=== PATIENT | male | born 1950 | race Caucasian/White ===

== ENCOUNTER 2025-07-26 08:46 | Emergency (ER) | payer MEDICARE, SELFPAY ==
[2025-07-26 08:49] VITALS: BP 130/85
[2025-07-26 11:13] VITALS: BP 105/64
[2025-07-26 11:14] VITALS: BMI 27.4
--- NOTE | 2025-07-26 12:51 | ED.GENMED ---
History of Present Illness
General
Chief Complaint: DVT/Possible Blood Clot
Time Seen by Provider: 07/26/25 11:09
History of Present Illness
History of Present Illness:
75-year-old male presents to the emergency department for evaluation of right calf discomfort. 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 He does take Plavix and aspirin. Denies trauma to the area. No fevers or chills
Review of Systems
Review of Systems
Allergies reviewed?: Yes
All Other Systems: ROS reviewed and negative except as documented in HPI and ROS
Phy Exam
Physical Exam
Physical Exam:
GEN: Well appearing, NAD, WDWN
HEENT: Oral mucosa moist, no scleral icterus
Cardiac: Regular rate
Lung: No respiratory distress, no tachypnea
MSK: Thready venous cords with tenderness to the posterior right calf, no erythema, tenderness to palpation
Skin: Good color, no pallor or jaundice, no rashes
Neuro: AO x3, moves all extremities freely
Psych: Calm, cooperative
Course
Orders/Labs/Results
Orders:
Orders
07/26/25 08:57
US Legs, Right [US Periph Venous LOWER Ext RT] Urgent
Comment:
Reason For Exam: pain swelling
Vital Signs
Initial and Last Documented VS:
Initial Vital Signs
Temp Pulse Resp BP Pulse Ox
98.8 F 72 16 130/85 96
07/26/25 08:49 07/26/25 08:49 07/26/25 08:49 07/26/25 08:49 07/26/25 08:49
Last Documented Vital Signs
Temp Pulse Resp BP Pulse Ox
98.8 F 72 16 105/64 97
07/26/25 08:49 07/26/25 08:49 07/26/25 08:49 07/26/25 11:13 07/26/25 12:51
MDM/Problems Addressed
MDM/Problems Addressed:
Exam and ultrasound consistent with acute superficial thrombophlebitis. Patient is advised he may increase aspirin for 5-day period to full dose however should not exceed 5 days due to bleeding risk. Recommend warm compresses and primary care
follow-up
*Pulse Oximetry
SaO2: 97
Oxygen Mode of Delivery: Room air
Patient hypoxic: no
*Critical Care Note
Total Time (30-74mins, 75-104mins- exclusive of procedures): Not Applicable
ED Attending Note
-
Portions of this chart may have been created with voice recognition software.� Occasional wrong word or��sound alike� substitutions may have occurred due to the inherent limitations of voice recognition software.
Discharge Plan
Departure
Patient Disposition: Home (Routine Discharge)
Date of Disposition: 07/26/25
Time of Disposition: 12:51
Patient with high blood pressure during this ER visit?: No
Discharge Problem:
Superficial thrombophlebitis
Instructions: Superficial vein phlebitis and thrombosis
Referrals:
UNKNOWN - PT DOES,NOT KNOW [Family Provider]
Interventions
Interventions:
*General Assessment Last Done: 07/26/25 11:15
*Neglect/Abuse Screening Last Done: 07/26/25 08:49
*ED COVID-19 Vaccine History Last Done: 07/26/25 11:15
*ED Influenza Vaccine History Last Done: 07/26/25 11:15
[facility] Fall Risk Assessment Tool Last Done: 07/26/25 11:14
*Risk Screen - Suicide (C-SSRS) Last Done: 07/26/25 08:49
*Nursing Disposition Last Done: 07/26/25 13:04
ED- Cardiac Assessment Last Done: 07/26/25 11:16
ED- Pulmonary Assessment Last Done: 07/26/25 11:16
ED-Peripheral Vascular Assessment Last Done: 07/26/25 11:16
ED-Skin Assessment Last Done: 07/26/25 11:16
Discharge Date and Time
Discharge Date/Time: 07/26/25 13:04
Print Language: JAPANESE
== END 2025-07-26 13:04 | disposition home or self-care (01) ==
LOC: EMR 08:46
PROVIDERS: EMERGENCY PHYSICIAN Student in an Organized Health Care Education/Training Program
DX: I80.01 Phlebitis and thrombophlebitis of superficial vessels of right lower extremity (principal); Z86.711 Personal history of pulmonary embolism
CPT/HCPCS: 99284; 93971